=== PATIENT | male | born 1985 | race Caucasian/White ===

== ENCOUNTER 2019-07-06 17:58 | Emergency (ER) | payer BC ==
[2019-07-06 18:13] VITALS: BP 125/75
[2019-07-06] MEDS ORDERED: DOXYcycline CAP(*) 100 MG PO ONE (18:53)
--- NOTE | 2019-07-06 19:00 | UC ---
Epistaxis Nasal HPI - HPI Summary HPI Summary: 33 yo male had a "large zit" in his left nostril noted this AM He squeezed it this AM and it drained " alot of pus" Now upper lip swollen no fever no hx MRSA has a cracked left upper molar - History of Current Complaint Chief Complaint: UCGeneralIllness Stated Complaint: SINUS COMPLAINT Time Seen by Provider: 07/06/19 18:34 Hx Obtained From: Patient Onset/Duration: Gradual Onset, Lasting Hours Timing: Constant Severity Initially: Mild Severity Currently: None Pain Intensity: 0 Pain Scale Used: 0-10 Numeric Aggravating Factor(s): Other - touch - Allergies/Home Medications Allergies/Adverse Reactions: Allergies Allergy/AdvReac Type Severity Reaction Status Date / Time No Known Allergies Allergy Verified 07/06/19 18:12 PMH/Surg Hx/FS Hx/Imm Hx Previously Healthy: Yes - Surgical History Surgical History: Yes Surgery Procedure, Year, and Place: knee surgery 10 years ago - Family History Known Family History: Positive: Hypertension - Social History Alcohol Use: None Substance Use Type: None Smoking Status (MU): Never Smoked Tobacco Review of Systems All Other Systems Reviewed And Are Negative: Yes Constitutional: Positive: Negative Skin: Positive: Negative Eyes: Positive: Negative ENT: Positive: Dental Pain Respiratory: Positive: Negative Cardiovascular: Positive: Negative Gastrointestinal: Positive: Negative Genitourinary: Positive: Negative Motor: Positive: Negative Neurovascular: Positive: Negative Musculoskeletal: Positive: Negative Neurological: Positive: Negative Psychological: Positive: Negative Physical Exam Triage Information Reviewed: Yes Appearance: Well-Appearing, No Pain Distress, Well-Nourished Vital Signs: Initial Vital Signs Temp 99.0 F 07/06/19 18:09 Pulse 75 07/06/19 18:09 Resp 16 07/06/19 18:09 BP 125/75 07/06/19 18:09 Pulse Ox 100 07/06/19 18:09 Vital Signs Reviewed: Yes Eyes: Positive: Conjunctiva Clear ENT: Positive: Hearing grossly normal, TMs normal. Negative: Nasal congestion, Nasal drainage, Tonsillar swelling, Tonsillar exudate, Trismus, Muffled voice, Hoarse voice, Dental tenderness, Sinus tenderness, Uvula midline Dental Exam: Normal Neck: Positive: Supple, Nontender, No Lymphadenopathy Respiratory: Positive: Lungs clear, Normal breath sounds, No respiratory distress, No accessory muscle use, Respiratory distress Cardiovascular: Positive: RRR Musculoskeletal: Positive: ROM Intact, No Edema Neurological: Positive: Alert Psychological Exam: Normal Skin Exam: Normal Images Head: 1 - slight swelling/erthyema/ no abscess 2 - lip edema/ no lesions Epistaxis Nasal Course/Dx - Differential Dx/Diagnosis Provider Diagnosis: Infected lesion in nose Discharge ED - Sign-Out/Discharge Documenting (check all that apply): Patient Departure All imaging exams completed and their final reports reviewed: No Studies - Discharge Plan Condition: Stable Disposition: HOME Prescriptions: DOXYcycline CAP(*) [DOXYcycline 100MG CAP(*)] 100 mg PO BID #12 cap Patient Education Materials: Cellulitis (ED) Referrals: [facility] [[facility]] - If Needed Additional Instructions: warm compresses 3-4 x day Don't squeeze recheck for worsening symptoms of if not significantly improved in 3 days - Billing Disposition and Condition Condition: STABLE Disposition: Home
== END 2019-07-06 19:15 | disposition home or self-care (01) ==
LOC: UCCORT 17:58
DX: L98.8 Other specified disorders of the skin and subcutaneous tissue (principal); L08.89 Other specified local infections of the skin and subcutaneous tissue
CPT/HCPCS: 99202; A9270-GY; G0463

== ENCOUNTER 2019-09-26 15:04 | Emergency (ER) | payer BC ==
[2019-09-26 15:41] VITALS: BP 129/71
--- NOTE | 2019-09-26 16:14 | UC ---
Skin Complaint HPI - HPI Summary HPI Summary: Pt presents with c/o pf worsening "boil" on low back that pt can not recall when it began. Pt has been warm packing the area and states that the pain has now been radiating along lower lateral right side of trunk and left groin. - History of Current Complaint Chief Complaint: UCWounds Time Seen by Provider: 09/26/19 15:25 Stated Complaint: SKIN COMP (ON BACK) Hx Obtained From: Patient Onset/Duration: Gradual Onset, Lasting Days, Still Present, Worse Since - onset Skin Exposure Onset/Duration: Days Ago Timing: Constant Onset Severity: Mild Current Severity: Moderate Pain Intensity: 4 Pain Scale Used: 0-10 Numeric Location: Discrete - mid low back Character: Pain, Redness, Painful Aggravating Factor(s): Touch Alleviating Factor(s): Nothing Associated Signs & Symptoms: Positive: Drainage, Tenderness - Allergy/Home Medications Allergies/Adverse Reactions: Allergies Allergy/AdvReac Type Severity Reaction Status Date / Time No Known Allergies Allergy Verified 09/26/19 15:41 Home Medications: Home Medications Cephalexin CAP* [Keflex 500 CAP*] 500 mg PO Q8H #30 cap 09/26/19 [Rx] Sulfamethox/Trimethoprim DS* [Bactrim DS 800/160 TAB*] 1 tab PO BID #20 tab [Rx] PMH/Surg Hx/FS Hx/Imm Hx Previously Healthy: Yes - Surgical History Surgical History: Yes Surgery Procedure, Year, and Place: knee surgery 10 years ago - Family History Known Family History: Positive: Hypertension - Social History Alcohol Use: None Substance Use Type: None Smoking Status (MU): Never Smoked Tobacco Type: Smokeless Tobacco Length of Time of Smoking/Using Tobacco: occasionally Have You Smoked in the Last Year: No Review of Systems All Other Systems Reviewed And Are Negative: Yes Constitutional: Positive: Negative Skin: Positive: Other - tender "boil" mid low back Eyes: Positive: Negative ENT: Positive: Negative Respiratory: Positive: Negative Cardiovascular: Positive: Negative Gastrointestinal: Positive: Negative Genitourinary: Positive: Negative Motor: Positive: Negative Neurovascular: Positive: Negative Musculoskeletal: Positive: Myalgia - at abscess site Neurological/Mental Status: Positive: Negative Psychological: Positive: Negative Is Patient Immunocompromised?: No Physical Exam Vital Signs: Initial Vital Signs Temp 98.6 F 09/26/19 15:29 Pulse 77 09/26/19 15:29 Resp 16 09/26/19 15:29 BP 129/71 09/26/19 15:29 Pulse Ox 100 09/26/19 15:29 Course/Dx - Differential Diagnoses - Skin Complaint Differential Diagnoses: Abscess, Cellulitis, MRSA - Diagnoses Provider Diagnosis: Abscess Discharge ED - Sign-Out/Discharge Documenting (check all that apply): Patient Departure All imaging exams completed and their final reports reviewed: No Studies - Discharge Plan Condition: Stable Disposition: HOME Prescriptions: Cephalexin CAP* [Keflex 500 CAP*] 500 mg PO Q8H #30 cap Sulfamethox/Trimethoprim DS* [Bactrim DS 800/160 TAB*] 1 tab PO BID #20 tab Patient Education Materials: Wound Infection (ED), Warm Compress or Soak (ED) Referrals: [facility] [[facility]] - If Needed No Primary Care Phys,NOPCP [Primary Care Provider] - - Billing Disposition and Condition Condition: STABLE Disposition: Home
--- NOTE | 2019-09-27 14:02 | UC ---
- Progress Note Progress Note: PLEASE CALL PATIENT. ADVISE THAT SWAB RETURNED POSITIVE FOR MRSA. CONTINUE ANTIBIOTICS PRESCRIBED. NO CHANGE IN MANAGEMENT. Course/Dx - Diagnoses Provider Diagnoses: Abscess Discharge ED - Sign-Out/Discharge Documenting (check all that apply): Post-Discharge Follow Up All imaging exams completed and their final reports reviewed: No Studies - Discharge Plan Condition: Stable Disposition: HOME Prescriptions: Cephalexin CAP* [Keflex 500 CAP*] 500 mg PO Q8H #30 cap Sulfamethox/Trimethoprim DS* [Bactrim DS 800/160 TAB*] 1 tab PO BID #20 tab Patient Education Materials: Wound Infection (ED), Warm Compress or Soak (ED) Referrals: [facility] [[facility]] - If Needed No Primary Care Phys,NOPCP [Primary Care Provider] - - Billing Disposition and Condition Condition: STABLE Disposition: Home
== END 2019-09-26 16:07 | disposition home or self-care (01) ==
LOC: UCCORT 15:04
DX: L02.212 Cutaneous abscess of back [any part, except buttock and flank] (principal)
CPT/HCPCS: 87070; 87077; 87186; 87205; 87640; 87641; 99212; G0463